=== PATIENT | male | born 1950 | race African-American/Black ===

== ENCOUNTER 2023-05-12 10:13 | Inpatient (IN) | payer OTHER ==
[2023-05-12 11:47] VITALS: BMI 24.9
[2023-05-12] MEDS ORDERED: LOPERAMIDE HCL 2 MG CAPSULE PO PRN (15:25)
[2023-05-12] MEDS ORDERED: METHOCARBAMOL 500 MG TABLET PO PRN (15:25)
[2023-05-12] MEDS ORDERED: IBUPROFEN 400 MG TABLET (FP) PO PRN (15:25)
[2023-05-12] MEDS ORDERED: POLYETHYLENE GLYCOL (HEALTHYLAX) 3350 17 GM PACKET PO PRN (15:25)
[2023-05-12] MEDS ORDERED: ONDANSETRON *ODT* 4 MG TABLET SL PRN (15:25)
[2023-05-12] MEDS ORDERED: guaiFENesin 600 MG TABLET.ER (FP) PO PRN (15:25)
[2023-05-12] MEDS ORDERED: BENZONATATE 200 MG CAPSULE PO PRN (15:25)
[2023-05-12] MEDS ORDERED: MAGNESIUM HYDROX 2400MG/30ML ORAL SUSPENSION 30 ML CUP PO PRN (15:25)
[2023-05-12] MEDS ORDERED: DICYCLOMINE HCL 10 MG CAPSULE PO PRN (15:25)
[2023-05-12] MEDS ORDERED: BISMUTH SUBSALICYLATE 524 MG/30 ML PO PRN (15:25)
[2023-05-12] MEDS ORDERED: ACETAMINOPHEN 325 MG TABLET (FP) PO PRN (15:25)
[2023-05-12] MEDS ORDERED: IBUPROFEN 600 MG TABLET (FP) PO PRN (15:25)
[2023-05-12] MEDS ORDERED: NALOXONE HCL (KLOXXADO) 8 MG SPRAY NS PRN (15:25)
[2023-05-12] MEDS ORDERED: BENZOCAINE/MENTHOL (CHLORASEPTIC ) LOZENGE MM PRN (15:25)
[2023-05-12] MEDS ORDERED: NALOXONE HCL 0.4 MG/ML VIAL IM PRN (15:25)
[2023-05-12] MEDS: chlordiazePOXIDE HCL 25 MG CAPSULE PO PRN (17:42)
[2023-05-12] MEDS: THIAMINE HCL 100 MG TABLET (FP) PO SCH (23:27)
[2023-05-12] MEDS: chlordiazePOXIDE HCL 25 MG CAPSULE PO SCH (23:28)
[2023-05-12] MEDS: MELATONIN 5 MG TABLETS PO SCH (23:28)
[2023-05-13] MEDS: PRENATAL VITAMINS W/ FOLIC ACID TABLET (FP) PO SCH (10:46)
[2023-05-13] MEDS: ASPIRIN COATED 81 MG TABLET.EC PO SCH (10:46)
[2023-05-13] MEDS: metoPROLOL SUCCINATE 25 MG TAB.SR.24H (FP) PO SCH (10:49)
[2023-05-13 11:31] LABS: HEMATOCRIT 41.8 % (35.4-49); HEMOGLOBIN 13.6 GM/dL (11.7-16.9); MCH 23.4 pg (25.7-33.7); MCHC 32.4 g/dl (32.0-35.9); MEAN CELL VOLUME 72.2 fl (80-96); MEAN PLT VOLUME 8.5 fl (7.5-11.1); PLATELET COUNT 213 10^3/uL (134-434); RDW 14.1 % (11.9-15.9); WHITE BLOOD COUNT 4.3 K/mm3 (4.0-10.0)
[2023-05-13 12:00] LABS: CHLORIDE 112 mmol/L (98-107); POTASSIUM 4.1 mmol/L (3.5-5.1); SODIUM 145 mmol/L (136-145)
[2023-05-13 12:03] LABS: CALCIUM 9.7 mg/dL (8.5-10.1)
[2023-05-13 12:05] LABS: ALBUMIN 3.3 g/dl (3.4-5.0); ANION GAP 7 mmol/L (4-13); CO2 25 mmol/L (21-32); GLUCOSE,RANDOM 127 mg/dL (74-106)
[2023-05-13 12:07] LABS: CREATININE 1.1 mg/dL (0.55-1.3); SGOT/AST 49 U/L (15-37); SGPT/ALT 76 U/L (13-61)
[2023-05-13 12:08] LABS: BILIRUBIN,TOTAL 0.7 mg/dL (0.2-1); TOT PROT 7.4 g/dl (6.4-8.2)
[2023-05-13 12:10] LABS: ALK PHOS 65 U/L (45-117)
[2023-05-13] MEDS: LISINOPRIL 10 MG TABLET PO SCH (15:39)
[2023-05-14] MEDS: chlordiazePOXIDE HCL 25 MG CAPSULE PO SCH (05:53)
[2023-05-14] MEDS: hydrOXYzine PAMOATE 25 MG CAPSULE (FP) PO PRN (09:32)
[2023-05-15] MEDS ORDERED: chlordiazePOXIDE HCL 10 MG CAPSULE PO PRN
[2023-05-15] MEDS: chlordiazePOXIDE HCL 10 MG CAPSULE PO SCH (05:59)
[2023-05-16] MEDS: MAG HYDROX/AL HYDROX/SIMETH 30 ML UNIT-DOSE CUP PO PRN (03:14)
[2023-05-16] MEDS: chlordiazePOXIDE HCL 10 MG CAPSULE PO SCH ×2 (05:20→18:21)
[2023-05-16] MEDS: cloNIDine HCL 0.1 MG TABLET PO ONE (13:35)
[2023-05-17] MEDS: chlordiazePOXIDE HCL 10 MG CAPSULE PO ONE (06:03)
[2023-05-17 12:46] VITALS: BP 155/81; PULSE 66; RESP 18; TEMP 97.8
== END 2023-05-17 15:40 | disposition home or self-care (01) | DRG 775 ==
LOC: YASAS 10:13 → Y6N 14:06
PROVIDERS: ADMIT Allergy & Immunology; ATTEND Surgery
PROC: HZ2ZZZZ Detoxification Services for Substance Abuse Treatment (ICD-10-PCS; principal; 2023-05-12)
DX: F10.230 Alcohol dependence with withdrawal, uncomplicated (principal); F12.10 Cannabis abuse, uncomplicated; F17.210 Nicotine dependence, cigarettes, uncomplicated; I10 Essential (primary) hypertension; H54.3 Unqualified visual loss, both eyes; R76.11 Nonspecific reaction to tuberculin skin test without active tuberculosis; Z28.310 Unvaccinated for COVID-19; Z28.9 Immunization not carried out for unspecified reason
CPT/HCPCS: 36415; 71046-TC-FY; 80053; 80305; 80307; 83036; 85027; 86780; 87635; 87811; 93005; 93010